=== PATIENT | male | born 1990 | race Caucasian/White ===

== ENCOUNTER → 2018-09-14 | Emergency (ER) | payer OTHER ==
[~2018-09-14] VITALS: Ht 188 cm; Wt 77.1 kg
[~2018-09-14] MED LIST: KETO10TA2 PO; NORFLEX100MG PO
== END | disposition home or self-care (01) ==
LOC: ER 22:57
DX: M54.5 Low back pain (principal)

== ENCOUNTER 2018-09-21 17:24 | Emergency (ER) | payer OTHER ==
[~2018-09-21] VITALS: Ht 190.5 cm; Wt 70.3 kg
== END 2018-09-21 18:05 | disposition home or self-care (01) ==
LOC: ER 17:24
DX: M62.830 Muscle spasm of back (principal)

== ENCOUNTER 2018-09-22 19:22 | Emergency (ER) | payer OTHER ==
[~2018-09-22] VITALS: Ht 190.5 cm; Wt 70.3 kg
== END 2018-09-22 20:27 | disposition home or self-care (01) ==
LOC: ER 19:22
DX: M54.89 Other dorsalgia (principal)

== ENCOUNTER 2018-09-28 08:55 | Emergency (ER) | payer OTHER ==
[~2018-09-28] VITALS: Ht 190.5 cm; Wt 70.3 kg
== END 2018-09-28 10:01 | disposition home or self-care (01) ==
LOC: ER 08:55
DX: M54.5 Low back pain (principal)

== ENCOUNTER → 2018-09-28 | Emergency (ER) | payer OTHER ==
[~2018-09-28] VITALS: Ht 190.5 cm; Wt 70.3 kg
== END | disposition left against medical advice (07) ==
LOC: ER 05:36
DX: Z53.20 Procedure and treatment not carried out because of patient's decision for unspecified reasons (principal)

== ENCOUNTER → 2018-10-01 | Emergency (ER) | payer OTHER ==
[~2018-10-01] VITALS: Ht 190.5 cm; Wt 70.3 kg
== END | disposition left against medical advice (07) ==
LOC: ER 23:05
DX: Z53.20 Procedure and treatment not carried out because of patient's decision for unspecified reasons (principal)

== ENCOUNTER → 2018-10-01 | Emergency (ER) | payer OTHER ==
[~2018-10-01] VITALS: Ht 190.5 cm; Wt 70.3 kg
== END | disposition left against medical advice (07) ==
LOC: ER 05:20
DX: Z53.20 Procedure and treatment not carried out because of patient's decision for unspecified reasons (principal)

== ENCOUNTER → 2018-10-03 | Emergency (ER) | payer OTHER ==
[~2018-10-03] VITALS: Ht 190.5 cm; Wt 70.3 kg
== END | disposition left against medical advice (07) ==
LOC: ER 17:30
DX: Z53.20 Procedure and treatment not carried out because of patient's decision for unspecified reasons (principal)

== ENCOUNTER → 2018-10-04 | Emergency (ER) | payer OTHER ==
[~2018-10-04] VITALS: Ht 190.5 cm; Wt 70.3 kg
== END | disposition left against medical advice (07) ==
LOC: ER 20:31
DX: Z53.20 Procedure and treatment not carried out because of patient's decision for unspecified reasons (principal)

== ENCOUNTER → 2018-10-06 | Emergency (ER) | payer OTHER | END | disposition left against medical advice (07) | LOC: ER 17:39 | DX: Z53.20 Procedure and treatment not carried out because of patient's decision for unspecified reasons (principal) ==

== ENCOUNTER 2018-11-26 16:25 | Emergency (ER) | payer OTHER ==
[~2018-11-26] VITALS: Ht 190.5 cm; Wt 70.3 kg
== END 2018-11-26 17:32 | disposition home or self-care (01) ==
LOC: ER 16:25
DX: M54.89 Other dorsalgia (principal); F28 Other psychotic disorder not due to a substance or known physiological condition

== ENCOUNTER → 2018-12-25 | Emergency (ER) | payer OTHER ==
[~2018-12-25] VITALS: Ht 190.5 cm; Wt 77.1 kg
== END | disposition left against medical advice (07) ==
LOC: ER 19:24
DX: Z53.20 Procedure and treatment not carried out because of patient's decision for unspecified reasons (principal)

== ENCOUNTER → 2018-12-26 | Emergency (ER) | payer OTHER ==
[~2018-12-26] VITALS: Ht 190.5 cm; Wt 70.3 kg
== END | disposition left against medical advice (07) ==
LOC: ER 19:21
DX: Z53.20 Procedure and treatment not carried out because of patient's decision for unspecified reasons (principal)

== ENCOUNTER → 2018-12-27 | Emergency (ER) | payer OTHER ==
[~2018-12-27] VITALS: Ht 190.5 cm; Wt 70.3 kg
== END | disposition home or self-care (01) ==
LOC: ER 18:00
DX: M62.830 Muscle spasm of back (principal)

== ENCOUNTER 2018-12-30 18:07 | Emergency (ER) | payer OTHER ==
[~2018-12-30] VITALS: Ht 190.5 cm; Wt 70.3 kg
== END 2018-12-30 18:38 | disposition home or self-care (01) ==
LOC: ER 18:07
DX: M54.89 Other dorsalgia (principal)

== ENCOUNTER → 2018-12-31 | Emergency (ER) | payer OTHER ==
[~2018-12-31] VITALS: Ht 190.5 cm; Wt 70.3 kg
== END | disposition left against medical advice (07) ==
LOC: ER 18:43
DX: Z53.20 Procedure and treatment not carried out because of patient's decision for unspecified reasons (principal)

== ENCOUNTER → 2019-01-01 | Emergency (ER) | payer OTHER ==
[~2019-01-01] VITALS: Ht 190.5 cm; Wt 70.3 kg
== END | disposition left against medical advice (07) ==
LOC: ER 18:55
DX: Z53.20 Procedure and treatment not carried out because of patient's decision for unspecified reasons (principal)

== ENCOUNTER → 2019-01-02 | Emergency (ER) | payer OTHER ==
[~2019-01-02] VITALS: Ht 190.5 cm; Wt 70.3 kg
== END | disposition left against medical advice (07) ==
LOC: ER 17:13
DX: Z53.20 Procedure and treatment not carried out because of patient's decision for unspecified reasons (principal)

== ENCOUNTER → 2019-01-04 | Emergency (ER) | payer OTHER ==
[~2019-01-04] VITALS: Ht 190.5 cm; Wt 70.3 kg
== END | disposition left against medical advice (07) ==
LOC: ER 06:12
DX: Z53.20 Procedure and treatment not carried out because of patient's decision for unspecified reasons (principal)

== ENCOUNTER → 2019-01-04 | Emergency (ER) | payer OTHER ==
[~2019-01-04] VITALS: Ht 190.5 cm; Wt 70.3 kg
== END | disposition left against medical advice (07) ==
LOC: ER 21:20
DX: Z53.20 Procedure and treatment not carried out because of patient's decision for unspecified reasons (principal)

== ENCOUNTER 2019-01-05 16:37 | Emergency (ER) | payer OTHER ==
[~2019-01-05] VITALS: Ht 190.5 cm; Wt 70.3 kg
== END 2019-01-05 18:16 | disposition home or self-care (01) ==
LOC: ER 16:37
DX: S23.3XXA Sprain of ligaments of thoracic spine, initial encounter (principal); X58.XXXA Exposure to other specified factors, initial encounter; Y93.89 Activity, other specified; Y92.89 Other specified places as the place of occurrence of the external cause; Y99.8 Other external cause status

== ENCOUNTER → 2019-01-06 | Emergency (ER) | payer OTHER ==
[~2019-01-06] VITALS: Ht 190.5 cm; Wt 70.3 kg
== END | disposition left against medical advice (07) ==
LOC: ER 21:13
DX: Z53.20 Procedure and treatment not carried out because of patient's decision for unspecified reasons (principal)

== ENCOUNTER → 2019-01-07 | Emergency (ER) | payer OTHER ==
[~2019-01-07] VITALS: Ht 190.5 cm; Wt 70.3 kg
== END | disposition home or self-care (01) ==
LOC: ER 21:00
DX: M54.89 Other dorsalgia (principal)

== ENCOUNTER → 2019-01-08 | Emergency (ER) | payer OTHER ==
[~2019-01-08] VITALS: Ht 188 cm; Wt 67.6 kg
== END | disposition left against medical advice (07) ==
LOC: ER 17:19
DX: Z76.5 Malingerer [conscious simulation] (principal)

== ENCOUNTER → 2019-01-09 | Emergency (ER) | payer OTHER | END | disposition left against medical advice (07) | LOC: ER 18:02 | DX: Z53.20 Procedure and treatment not carried out because of patient's decision for unspecified reasons (principal) ==

== ENCOUNTER → 2019-01-10 | Emergency (ER) | payer OTHER | END | disposition left against medical advice (07) | LOC: ER 06:30 | DX: Z53.20 Procedure and treatment not carried out because of patient's decision for unspecified reasons (principal) ==

== ENCOUNTER 2019-01-13 17:58 | Emergency (ER) | payer OTHER ==
[~2019-01-13] VITALS: Ht 180.3 cm; Wt 59.0 kg
== END 2019-01-13 20:11 | disposition home or self-care (01) ==
LOC: ER 17:58
DX: M54.89 Other dorsalgia (principal)

== ENCOUNTER → 2019-01-13 | Emergency (ER) | payer OTHER | END | disposition left against medical advice (07) | LOC: ER 08:12 | DX: Z53.20 Procedure and treatment not carried out because of patient's decision for unspecified reasons (principal) ==

== ENCOUNTER → 2019-01-15 | Emergency (ER) | payer OTHER | END | disposition left against medical advice (07) | LOC: ER 14:53 | DX: Z53.20 Procedure and treatment not carried out because of patient's decision for unspecified reasons (principal) ==

== ENCOUNTER → 2019-01-17 | Emergency (ER) | payer OTHER | END | disposition left against medical advice (07) | LOC: ER 17:31 ==

== ENCOUNTER → 2019-01-18 | Emergency (ER) | payer OTHER ==
[~2019-01-18] VITALS: Ht 190.5 cm; Wt 70.3 kg
== END | disposition left against medical advice (07) ==
LOC: ER 15:06
DX: Z53.20 Procedure and treatment not carried out because of patient's decision for unspecified reasons (principal)

== ENCOUNTER → 2019-01-20 | Emergency (ER) | payer OTHER | END | disposition left against medical advice (07) | LOC: ER 16:13 | DX: Z53.20 Procedure and treatment not carried out because of patient's decision for unspecified reasons (principal) ==

== ENCOUNTER → 2019-01-21 | Emergency (ER) | payer OTHER | END | disposition left against medical advice (07) | LOC: ER 06:21 | DX: Z53.20 Procedure and treatment not carried out because of patient's decision for unspecified reasons (principal) ==

== ENCOUNTER → 2019-01-25 | Emergency (ER) | payer OTHER | END | disposition left against medical advice (07) | LOC: ER 06:02 | DX: Z53.20 Procedure and treatment not carried out because of patient's decision for unspecified reasons (principal) ==

== ENCOUNTER → 2019-01-26 | Emergency (ER) | payer OTHER ==
[~2019-01-26] VITALS: Ht 190.5 cm; Wt 70.3 kg
== END | disposition left against medical advice (07) ==
LOC: ER 15:35
DX: Z53.20 Procedure and treatment not carried out because of patient's decision for unspecified reasons (principal)

== ENCOUNTER 2019-02-02 15:44 | Emergency (ER) | payer OTHER ==
[~2019-02-02] VITALS: Ht 190.5 cm; Wt 70.3 kg
== END 2019-02-02 17:06 | disposition home or self-care (01) ==
LOC: ER 15:44
DX: M62.830 Muscle spasm of back (principal)

== ENCOUNTER → 2019-02-05 | Emergency (ER) | payer OTHER | END | disposition left against medical advice (07) | LOC: ER 16:45 | DX: Z53.20 Procedure and treatment not carried out because of patient's decision for unspecified reasons (principal) ==

== ENCOUNTER → 2019-02-07 | Emergency (ER) | payer OTHER | END | disposition left against medical advice (07) | LOC: ER 16:39 | DX: Z53.20 Procedure and treatment not carried out because of patient's decision for unspecified reasons (principal) ==

== ENCOUNTER → 2019-02-15 | Emergency (ER) | payer OTHER | END | disposition left against medical advice (07) | LOC: ER 19:00 | DX: Z53.20 Procedure and treatment not carried out because of patient's decision for unspecified reasons (principal) ==

== ENCOUNTER → 2019-02-15 | Emergency (ER) | payer OTHER ==
[~2019-02-15] VITALS: Ht 190.5 cm; Wt 70.3 kg
== END | disposition left against medical advice (07) ==
LOC: ER 05:15
DX: Z53.20 Procedure and treatment not carried out because of patient's decision for unspecified reasons (principal)

== ENCOUNTER → 2019-02-20 | Emergency (ER) | payer OTHER | END | disposition left against medical advice (07) | LOC: ER 12:49 | DX: Z53.20 Procedure and treatment not carried out because of patient's decision for unspecified reasons (principal) ==

== ENCOUNTER → 2019-03-03 | Emergency (ER) | payer OTHER | END | disposition left against medical advice (07) | LOC: ER 15:22 | DX: Z53.20 Procedure and treatment not carried out because of patient's decision for unspecified reasons (principal) ==

== ENCOUNTER → 2019-03-21 | Emergency (ER) | payer OTHER ==
[~2019-03-21] VITALS: Ht 190.5 cm; Wt 70.3 kg
== END | disposition left against medical advice (07) ==
LOC: ER 04:57
DX: Z53.20 Procedure and treatment not carried out because of patient's decision for unspecified reasons (principal)